=== PATIENT | male | born 1985 | race Two or more races ===

== ENCOUNTER 2024-08-27 16:59 | Emergency (ER) | payer OTHER, MEDICAID, SELFPAY ==
[2024-08-27 17:26] VITALS: BP 134/84; PULSE 98; RESP 18; TEMP 36.9; O2SAT 99; BMI 36.0
--- NOTE | 2024-08-27 17:28 | XR_ITS ---
Examination: Foot, left, 3 views Technique: AP, oblique, lateral views foot, 3 views Date and time of exam: August 27, 2024 1733 hours INDICATIONS: Patient woke up this morning with foot pain FINDINGS: Mild narrowing first metatarsophalangeal joint and interphalangeal joint first digit No fracture 5 mm plantar 10 mm posterior bony calcaneal spurs No cortical bone destruction No opaque foreign bodies IMPRESSION: Mild osteoarthritis first metatarsophalangeal joint and interphalangeal joint first digit 5 mm plantar 10 mm posterior bony calcaneal spurs
--- NOTE | 2024-08-27 17:29 | PD.EDANKLE ---
Lower Extremity Injury RME/HPI General Chief Complaint: Ankle/Foot Injury Stated Complaint: LEFT HEEL PAIN X TODAY. CONCERN PLANTAR FASCIITIS Time Seen by Provider: 08/27/24 17:07 Arrival date/time: 08/27/24 16:59 RME / HPI RME / HPI Narrative: 38-year-old male patient with significant history of plantar fasciitis, came in for evaluation regarding foot pain since early this morning, patient woke up with pain, described as dull ache, severity moderate worse with ambulation. Patient was seen by a [employer] engineer before and was prescribed foot shoe which according to the patient stopped using it until this morning. Patient denies any trauma. Denies any other complaints no medication was taken prior to arrival. Related Data Previous Rx's ?Medication ?Instructions ?Recorded ibuprofen 800 mg tablet 800 mg PO TID PRN pain #30 tabs 08/27/24 Allergies Allergy/AdvReac Type Severity Reaction Status Date / Time No Known Allergies Allergy Verified 08/27/24 17:03 Review of Systems Review of Systems Narrative Review of Systems: Review of system reviewed and within normal limits except mentioned in HPI ED Exam Narrative Physical exam: VITAL SIGNS: Reviewed. GENERAL APPEARANCE: Alert and interactive, follows commands, no acute distress, HEAD AND FACE: Non-traumatic. ENT: PERRL, pink conjunctivitis, eyelid no trauma, Mucous membrane moist. NECK: Supple, nontender, no nuchal rigidity. RECTAL: Deferred. GENITAL: Deferred. NEUROLOGICAL: Gross motor function intact sensory function intact, Appropriate for age. MUSCULOSKELETAL: low back nontender, full range of motion. EXTREMITIES: Left foot/heel tenderness, no redness no swelling, full range of motion. SKIN: Color pink, dry, no rash, no lacerations, no abrasions, no contusions. LYMPHATICS: Deferred. Course Quality Measures none Orders Category Date Time Status XR foot comp LT min 3V Stat Exams 08/27/24 17:28 Completed Dexamethasone Inj [Decadron Inj] Med 08/27/24 17:28 Discontinued 10 mg PO X1 ONE Ketorolac Inj [Toradol Inj] Med 08/27/24 17:28 Discontinued 30 mg IM X1 ONE Vital Signs Vital signs: Vital Signs Temperature 98.5 F 08/27/24 17:26 Pulse Rate 98 08/27/24 17:26 Respiratory Rate 18 08/27/24 17:26 Blood Pressure 134/84 H 12/06/24 17:26 Pulse Oximetry (%) 99 08/27/24 17:26 Oxygen Delivery Method Room Air 08/27/24 17:26 Extremity Injury, Lower MDM Narrative MDM Narrative:: 38-year-old male patient with significant history of plantar fasciitis, came in for evaluation regarding foot pain since early this morning, patient woke up with pain, described as dull ache, severity moderate worse with ambulation. Patient was seen by a [employer] engineer before and was prescribed foot shoe which according to the patient stopped using it until this morning. Patient denies any trauma. Denies any other complaints no medication was taken prior to arrival. X-ray of the foot showed calcaneal spur, results discussed with the patient, patient was advised to see [employer] engineer and continue using the Ortho shoe that the [employer] engineer prescribed him last time he he had plantar fasciitis. Patient data External records reviewed:: None Clinical information provided by:: patient Social determinants that could affect healthcare access:: none Patient has the following chronic illnesses:: History of plantar fasciitis How is presenting disease/condition affected by chronic disease/condition?: exacerbated by Evaluation data The following diagnostics were reviewed and interpreted by me:: radiology exam(s) Lab and/or radiology exams considered but not ordered:: None Interpretation Summary: X-ray of the foot showed Mild osteoarthritis first metatarsophalangeal joint and interphalangeal joint first digit 5 mm plantar 10 mm posterior bony calcaneal spurs Medications / Prescriptions Medications or Prescriptions considered but not ordered:: None Medication administrations:: Medication Administration History Discontinued Medications Dexamethasone Sodium Phosphate (Dexamethasone Sod Phos Inj 10 Mg/Ml Vial) 10 mg PO X1 ONE Stop: 08/27/24 17:29 Last Admin: 08/27/24 18:06 Dose: 10 mg Documented By: CATERINA Ketorolac Tromethamine (Ketorolac Inj 60 Mg/2 Ml Vial) 30 mg IM X1 ONE Stop: 08/27/24 17:29 Last Admin: 08/27/24 18:06 Dose: 30 mg Documented By: CATERINA Toradol IM and Decadron p.o. Consultations Consultation(s) initiated? (list below): No Diagnosis Extremity Injury, Lower Differential Diagnosis: other (Plantar fasciitis, calcaneal spur, foot pain) Most likely diagnosis given after review of the tests above:: Plantar fasciitis can calcaneus spur Admission Indicated Admission indicated?: not indicated Explain why admission is indicated or not indicated:: Stable Admission Request Was there a request for admission?: No Disposition Plan Disposition Plan: Discharge Discharge Attestation Discharge Attestation: The patient was given an opportunity to ask questions and understood the discharge instructions. Discharge instructions specifically effects, indications for sooner follow up or return to the emergency department, and the expected course of current diagnosis. Patient condition: Stable Discharge Plan Plan Patient Disposition: HOME (Self Care) Disposition Comment: Stable Prescriptions/Referrals Prescriptions/Med Rec: New ibuprofen 800 mg tablet 800 mg PO TID PRN (Reason: pain) Qty: 30 0RF Referrals: Durga Craig PA-C [Primary Care Provider] - In 1 week Problem List Clinical Impression: Plantar fasciitis, Calcaneal spur Patient/Caregiver Discharge Instructions Discharge Activity: activity as tolerated Education Materials: ED Heel Spur, ED Plantar Fasciitis Additional Instructions: Thank you for the opportunity for serving you today. You are stable for discharged . You are advised to: Follow-up with your [employer] engineer in 1 to 2 days and continue wearing your Ortho shoe Return to ED for worsening of symptoms Increase oral fluids Take medication as prescribed Print Language: Khmer Stand Alone Forms: Luna Award Info., Patient Portal Info Letter NANDO/SANDI Supervising Physician PEDRO Supervising Physician: MD Lorenzo
[2024-08-27] MEDS: KETOROLAC INJ 60 MG/2 ML VIAL 30 MG IM (18:06)
[2024-08-27] MEDS: DEXAMETHASONE SOD PHOS INJ 10 MG/ML VIAL PO (18:06)
[2024-08-27 19:42] VITALS: BP 135/64; PULSE 78; RESP 19; TEMP 36.7; O2SAT 99
== END 2024-08-27 19:42 | disposition home or self-care (01) ==
PROVIDERS: Emergency Provider Emergency Medicine; PCP Family Medicine
DX: M72.2 Plantar fascial fibromatosis (principal); M77.32 Calcaneal spur, left foot
CPT/HCPCS: 73630; 96372; 99283; J1100; J1885

== ENCOUNTER → 2024-10-01 | Outpatient (CLI) | payer OTHER, MEDICAID, SELFPAY ==
--- NOTE | 2024-10-01 15:09 | XR_ITS ---
Examination: Knee, right , 3 views Technique: Knee AP, lateral, oblique 3 views Date and time of exam: October 01, 2019 0552 hours INDICATIONS: Right knee pain beginning 5 weeks ago. FINDINGS: Mild narrowing medial joint space Early osteoarthritis patellofemoral joint No fracture or dislocation IMPRESSION: Mild osteoarthritis
== END | disposition home or self-care (01) ==
PROVIDERS: PCP Family Medicine; Referring Provider Nurse Practitioner Family; Visit Provider Nurse Practitioner Family
DX: M17.11 Unilateral primary osteoarthritis, right knee (principal)
CPT/HCPCS: 73562